=== PATIENT | male | born 1980 | race Asian ===

== ENCOUNTER → 2020-05-04 13:40 | Outpatient (CLI) | payer OTHER, SELFPAY ==
[2020-05-04 14:44] LABS: Cholesterol 125 mg/dL (140-199); Glucose 83 mg/dL (70-100); HDL Cholesterol 16 mg/dL (40-60); LDL Cholesterol Calculated 44 mg/dL (<100); Triglycerides 323 mg/dL (35-150)
== END ==
PROVIDERS: PCP Family Medicine; Referring Provider Family Medicine; Visit Provider Family Medicine
DX: Z00.00 Encounter for general adult medical examination without abnormal findings (principal)
CPT/HCPCS: 36415; 80061; 82947

== ENCOUNTER → 2021-06-25 16:45 | Outpatient (CLI) | payer BC, SELFPAY ==
[2021-06-25 19:15] LABS: COVID19 -Nasal RAPID Negative (Negative)
== END ==
PROVIDERS: PCP Family Medicine; Referring Provider Physician Assistant; Visit Provider Physician Assistant
DX: Z20.822 Contact with and (suspected) exposure to COVID-19 (principal)
CPT/HCPCS: 87635

== ENCOUNTER → 2022-12-09 09:46 | Outpatient (CLI) | payer BC, SELFPAY ==
[2022-12-09 12:25] LABS: Hematocrit 44.1 % (41-53); Hemoglobin 15.2 g/dL (13.5-17.5); Mean Corpuscular HGB Conc 34.5 % (30-36); Mean Corpuscular Hemoglobin 29.1 PG (26-34); Mean Corpuscular Volume 84.1 fL (80-100); Platelet Count 241 X10^3/uL (150-400); Red Blood Cell Count 5.25 X10^6/uL (4.5-5.9); White Blood Cell Count 5.8 X10^3/uL (4.5-11.0)
[2022-12-09 12:46] LABS: Alanine Aminotransferase 97 IU/L (<50); Albumin 4.2 g/dL (3.5-5.0); Albumin Globulin Ratio 1.2 (1.0-2.8); Alkaline Phosphatase 61 U/L (38-126); Aspartate Aminotransferase 61 IU/L (17-59); BUN Creatinine Ratio 14.4 (6-22); Bilirubin Total 0.9 mg/dL (0.2-1.3); Blood Urea Nitrogen 13 mg/dL (9-20); Calcium 8.8 mg/dL (8.4-10.2); Carbon Dioxide 30 mmol/L (22-32); Chloride 102 mmol/L (98-107); Cholesterol 130 mg/dL (140-199); Estimated Glomerular Filt Rate > 60 mL/min (>60); Globulin 3.4 g/dL (1.7-4.1); Glucose 79 mg/dL (70-100); HDL Cholesterol 18 mg/dL (40-60); HEMOLYSIS < 15 (0-50); LDL Cholesterol Calculated 74 mg/dL (<100); Potassium 4.3 mmol/L (3.4-5.1); Sodium 139 mmol/L (137-145); Total Protein 7.6 g/dL (6.3-8.2); Triglycerides 192 mg/dL (35-150)
[2022-12-09 13:25] LABS: TSH w/ Reflex to FT4 1.67 uIU/mL (0.47-4.68)
== END ==
PROVIDERS: PCP Family Medicine; Referring Provider Family Medicine; Visit Provider Family Medicine
DX: Z00.00 Encounter for general adult medical examination without abnormal findings (principal); E78.1 Pure hyperglyceridemia; G47.33 Obstructive sleep apnea (adult) (pediatric); Z13.29 Encounter for screening for other suspected endocrine disorder
CPT/HCPCS: 36415; 80053; 80061; 84443; 85027

== ENCOUNTER → 2023-12-27 08:15 | Outpatient (CLI) | payer BC, SELFPAY ==
[2023-12-27 09:20] LABS: Alanine Aminotransferase 92 IU/L (<50); Albumin 4.2 g/dL (3.5-5.0); Albumin Globulin Ratio 1.3 (1.0-2.8); Alkaline Phosphatase 56 U/L (38-126); Aspartate Aminotransferase 58 IU/L (17-59); BUN Creatinine Ratio 15.2 (6-22); Blood Urea Nitrogen 14 mg/dL (9-20); Calcium 9.2 mg/dL (8.4-10.2); Carbon Dioxide 30 mmol/L (22-32); Chloride 106 mmol/L (98-107); Cholesterol 145 mg/dL (140-199); Estimated Glomerular Filt Rate > 60 mL/min (>60); Globulin 3.2 g/dL (1.7-4.1); Glucose 91 mg/dL (70-100); HDL Cholesterol 20 mg/dL (40-60); HEMOLYSIS < 15 (0-50); LDL Cholesterol Calculated 87 mg/dL (<100); Potassium 4.4 mmol/L (3.4-5.1); Sodium 138 mmol/L (137-145); Total Protein 7.4 g/dL (6.3-8.2); Triglycerides 188 mg/dL (35-150)
== END ==
PROVIDERS: PCP Family Medicine; Referring Provider Family Medicine; Visit Provider Family Medicine
DX: Z00.00 Encounter for general adult medical examination without abnormal findings (principal); K76.0 Fatty (change of) liver, not elsewhere classified; E78.5 Hyperlipidemia, unspecified; R74.8 Abnormal levels of other serum enzymes; E78.1 Pure hyperglyceridemia
CPT/HCPCS: 36415; 80053; 80061

== ENCOUNTER 2024-05-06 12:09 | Day surgery (SDC) | payer BC, SELFPAY ==
--- NOTE | 2024-05-06 | PATH_ITS ---
[facility] Accession Number: [id number] No. of containers..02 Tissue . 01 Material submitted: . PART A: colon - SIGMOID POLYPS PART B: rectum - RECTAL POLYP . 01 Diagnosis: Part A: SIGMOID POLYPS: Tubular adenoma. Hyperplastic polyp. . Part B: RECTAL POLYP: Inflammatory polyp. No dysplasia identified. [facility] 05/10/2024 1433 Local . 01 Electronically signed: . Percy Guevara MD, Pathologist NPI- [id number] . 01 Gross description: . A. Received in formalin, labeled with two patient identifiers and designated sigmoid polyps, and consists of a 0.3 x 0.2 x 0.1 cm and a 1.0 x 0.2 x 0.1 cm, sanchez-brown, irregular soft tissues, which are entirely submitted in cassette A1. . B. Received in formalin, labeled with two patient identifiers and designated rectal polyp, and consists of a 0.4 x 0.2 x 0.1 cm, sanchez -brown, polypoid tissue which is entirely submitted in cassette B1. ([id number]) /FREdward 05/10/2024 1433 Local . 01 Pathologist provided ICD-10: D12.5, K51.40 . 01 CPT . 084197, [id number] Specimen Comment: A courtesy copy of this report has been sent to [phone] Performed at: [address] [id number] MD Percy Guevara MD Phone: [phone]
[2024-05-06 13:22] VITALS: BP 112/70; PULSE 78; RESP 16; TEMP 36.5; O2SAT 97
--- NOTE | 2024-05-06 13:36 | P.HP_ITS ---
History of Present Illness History of Present Illness Date Patient Seen: 05/06/24 Time Patient Seen: 13:36 Chief complaint: Colonoscopy Narrative: Bethel is a 43-year-old man here for colonoscopy. He did have one when he was 33 that was normal. He has no first-degree relatives with colon cancer. [facility] Medical History (Updated 05/06/24 @ 13:37 by Michael Montes De Oca MD) Fatty liver ZEINA (obstructive sleep apnea) Vision disorder Chicken pox (~1986) No significant medical problems Family History Father Hypertension Mother Hypertension Grandfather Cancer Grandmother Cancer Grandfather Heart disease Grandmother Old age Social History marital status: number of children: 1 household members: family lives independently: Yes caregiver/support person: No housing: house pets and animals: No education level: college occupational status: employed Smoking Status: Never smoker second hand exposure: No alcohol intake: current Meds Home Medications and Allergies Home Medications Medication Instructions Recorded Confirmed Type No Known Home Medications 05/06/24 05/06/24 History Allergies Allergy/AdvReac Type Severity Reaction Status Date / Time No Known Drug Allergies Allergy Verified 05/06/24 13:18 Exam Vital Signs (past 8 hours): - 05/06/24 13:22 Temperature 97.7 F Pulse Rate 78 Respiratory Rate 16 Blood Pressure 112/70 Pulse Oximetry 97 Oxygen Delivery Method Room Air Oxygen Delivery Method Room Air Const General: No acute distress Resp Effort & Inspection: normal respiratory effort Assessment & Plan Assessment and plan (1) Colon cancer screening: Status: Acute Plan Colonoscopy Time-Based Coding :: [TOTAL MINUTES] spent with patient and on the chart (including review of chart, obtaining history, exam, reviewing outside data, placing orders, documenting exam and treatment plan, and counseling patient) on [DATE].
--- NOTE | 2024-05-06 14:11 | PM.OP.COLON ---
Operative Date/Time/Diagnoses Date of procedure: 05/06/24 Time of procedure: 14:11 Pre-op diagnosis: Colon cancer screening Post-op diagnosis: same Procedure & Clinicians Study performed: Colonoscopy Same procedure as scheduled: Yes Surgeon: Michael Montes De Oca Procedure Notes Procedure in detail: Surgeon: Michael Montes De Oca MD Anesthesia: Carmita Chin MD Procedure: The patient was brought to the endoscopy suite, placed in left lateral decubitus position. The patient was connected to monitoring devices. A time-out was performed. Sedation was administered. Once the patient was adequately sedated, a digital rectal exam was performed and was normal. The scope was then inserted and advanced to the cecum where the appendiceal orifice was identified and photographed. The scope was then slowly withdrawn over greater than 6 minutes. The mucosa was thoroughly inspected. There were 2 5 mm polyps in the sigmoid colon removed with cold snare and sent together. There 1 5 mm polyp lower rectum removed with a cold snare. The scope was retroflexed in the rectum. No other abnormalities were seen. The scope was straightened and removed. The patient was awakened and brought to recovery. Scope withdrawal time: 12 minutes Sedation time: 16 minutes EBL: 5 Findings: 2 small sigmoid colon polyps and 1 small rectal polyp Post-procedure Disposition: PACU
[2024-05-06 14:20] VITALS: BP 106/71; PULSE 80; RESP 10; TEMP 36.3
[2024-05-06 14:27] VITALS: BP 101/53; PULSE 85; RESP 16; O2SAT 98
[2024-05-06 14:33] VITALS: BP 105/71; PULSE 78; RESP 16; O2SAT 97
[2024-05-06 14:37] VITALS: BP 107/73; PULSE 78; RESP 16; O2SAT 96
== END 2024-05-06 15:24 | disposition home or self-care (01) ==
PROVIDERS: PCP Family Medicine; Referring Provider Surgery; Visit Provider Surgery
PROC: 0DJD8ZZ Inspection of Lower Intestinal Tract, Via Natural or Artificial Opening Endoscopic (ICD-10-PCS; CPT 45378; principal; 2024-05-06 13:30)
DX: Z12.11 Encounter for screening for malignant neoplasm of colon (principal); D12.5 Benign neoplasm of sigmoid colon; K62.1 Rectal polyp
CPT/HCPCS: 45385; J2704

== ENCOUNTER → 2025-04-29 07:34 | Outpatient (CLI) | payer BC, SELFPAY ==
[2025-04-29 08:43] LABS: Hemoglobin A1C% w Est Avg Glu 5.6 % (4.0-6.0)
[2025-04-29 09:04] LABS: Cholesterol 125 mg/dL (140-199); HDL Cholesterol 19 mg/dL (40-60); Triglycerides 179 mg/dL (35-150)
== END ==
PROVIDERS: PCP Family Medicine; Referring Provider Family Medicine; Visit Provider Family Medicine
DX: Z13.220 Encounter for screening for lipoid disorders (principal); E78.1 Pure hyperglyceridemia
CPT/HCPCS: 36415; 80061; 83036